=== PATIENT | female | born 1955 | race Caucasian/White ===

== ENCOUNTER → 2016-10-06 | Outpatient (CLI) | payer OTHER ==
--- NOTE | 2016-10-07 08:00 | MM ---
Reason for exam: screening (asymptomatic). Last mammogram was performed 1 year ago. History: Patient is postmenopausal and history of other cancer. Family history of breast cancer in mother at age 70, breast cancer in maternal aunt, and breast cancer in paternal aunt. Benign excisional biopsy of the right breast, 1989. Physical Findings: A clinical breast exam by your physician is recommended on an annual basis and results should be correlated with mammographic findings. MG Screening Mammo w CAD Bilateral CC and MLO view(s) were taken. Prior study comparison: October 05, 2015, bilateral MG screening mammo w CAD. October 03, 2014, bilateral MG screening mammo w CAD. There are scattered fibroglandular densities. There is no discrete abnormality. No significant changes when compared with prior studies. ASSESSMENT: Negative, BI-RAD 1 RECOMMENDATION: Routine screening mammogram of both breasts in 1 year.
== END | disposition home or self-care (01) ==
LOC: RADMAMWWP 08:51
PROVIDERS: ATTEND Internal Medicine
DX: Z12.31 Encounter for screening mammogram for malignant neoplasm of breast (principal)

== ENCOUNTER → 2017-06-14 | Outpatient (CLI) | payer OTHER | END | disposition home or self-care (01) | LOC: LABWHC1 11:38 | PROVIDERS: ATTEND Psychiatry & Neurology Neurology | DX: G35 Multiple sclerosis (principal) | CPT/HCPCS: 36415; 82306 ==

== ENCOUNTER → 2017-10-18 | Outpatient (CLI) | payer OTHER ==
--- NOTE | 2017-10-18 08:16 | CT ---
EXAMINATION TYPE: CT soft tissue neck w con DATE OF EXAM: 10/18/2017 COMPARISON: 06/25/2012 HISTORY: 62-year-old female with swelling and neck mass TECHNIQUE: Contiguous axial scanning of the neck performed with IV Contrast, patient injected with 10 0 mL of Omnipaque 300. Coronal/sagittal reconstructions performed. CT DLP: 493 mGycm Automated exposure control for dose reduction was used. FINDINGS: Slight rightward nasal septal deviation. Visualized paranasal sinuses and mastoid air cells are clear . Nasopharynx is clear. Oropharynx is clear. The glottic and subglottic structures as well as the tracheal column are clear. Epiglottis and prevertebral soft tissues are within normal limits. A 7 mm hypodense nodule within the left lobe of the thyroid gland appears to haven't present previous ly. There is a 4 mm calcification now seen in the upper right submandibular gland. No surrounding inflamm atory changes are seen. Parotid glands mildly atrophic but otherwise unremarkable. Palpable marker present along the right submandibular region. There is a nonenlarged level 2 upper ce rvical lymph node measuring 7 mm just above this level. The right submandibular gland is slightly low er in position than the left and directly underlies the palpable marker. No cervical lymphadenopathy identified by CT size criteria. Moderate endplate spondylosis mid to lower cervical spine with disc osteophyte complexes mildly narro wing the spinal canal especially at C5-C6. Visualized upper lung shows similar emphysema and biapical pleural parenchymal scarring. IMPRESSION: 1. THE RIGHT SUBMANDIBULAR GLAND UNDERLIES THE PALPABLE MARKER AND IS LOCATED LOWER IN POSITION THAN THE LEFT SUBMANDIBULAR GLAND. CLINICALLY CORRELATE THIS MAY ACCOUNT FOR THE PALPABLE FINDING. 2. 4 MM RIGHT SUBMANDIBULAR GLAND SIALOLITH. THIS IS LOCATED WITHIN THE GLAND PARENCHYMA. NO APPRECIA BLE INFLAMMATORY CHANGES TO SUGGEST SIALOADENITIS AT THIS TIME. 3. OTHERWISE, NO CERVICAL LYMPHADENOPATHY OR SUSPICIOUS NECK MASS. 4. COPD.
== END | disposition home or self-care (01) ==
LOC: RADCTMAIN 06:41
PROVIDERS: ATTEND Internal Medicine
DX: K11.5 Sialolithiasis (principal)
CPT/HCPCS: 70491; Q9967

== ENCOUNTER 2018-01-18 08:43 | Day surgery (SDC) | payer OTHER ==
[2018-01-16 15:21] VITALS: BMI 23.7
[~2018-01-18 08:43] MED LIST: LACTATED RINGERS 1,000 ML IV SCH
[2018-01-18 09:04] VITALS: RESP 16; TEMP 97.4
[2018-01-18] MEDS ORDERED: LIDOCAINE 1% 20 ML VIAL (10MG/ML) FOR IV START INTRADERMA ONE (09:22)
[2018-01-18] MEDS ORDERED: LIDOCAINE 1% INJ 10MG/ML (20 ML MDV) ONE (09:57)
[2018-01-18] MEDS ORDERED: PROPOFOL 10 MG/ML 20 ML VIAL IV ONE (09:57)
--- NOTE | 2018-01-18 10:37 | P.PCN ---
Date of Procedure: 01/18/18 Procedure(s) Performed: Procedure: Total colonoscopy. Preoperative diagnosis: History of rectal bleeding. Postoperative diagnosis: Low-grade internal hemorrhoids not bleeding at the time of this exam, otherwise, exam to the cecum within normal limits. Preparation: HalfLytely prep. Sedation: Was provided by anesthesia. Brief clinical history: The patient is a 62-year-old female who is scheduled for this evaluation because of an episode of rectal bleeding that occurs around 1 month ago. That was following a bout of diarrhea. Normally, she has 1 bowel movement a week. Her last colonoscopy was in 2012. Procedure: With the patient on her left lateral decubitus position and after informed consent and adequate sedation, the perianal area was inspected and it did not show any fissures or fistulas. There were no masses felt on digital rectal examination. The Olympus CFQ 160L video colonoscope was then inserted in the rectum in the usual fashion and advanced to the cecum. The mucosa appeared healthy. No obvious polyps or tumors were seen or any obvious diverticular disease. Low-grade internal hemorrhoids were noted upon withdrawing the endoscope but there was no evidence of bleeding. The patient tolerated the procedure well. Plan: The patient was reassured. Discussed dietary measures and local care for hemorrhoids. She will follow-up with you as planned and I recommended repeat exam in 10 years.
[2018-01-18 10:55] VITALS: BP 96/71; PULSE 60
== END 2018-01-18 11:25 | disposition home or self-care (01) ==
LOC: ORWHC2ENDO 08:43
DX: K64.8 Other hemorrhoids (principal); K21.9 Gastro-esophageal reflux disease without esophagitis; J44.9 Chronic obstructive pulmonary disease, unspecified; E78.5 Hyperlipidemia, unspecified; G35 Multiple sclerosis; Z85.828 Personal history of other malignant neoplasm of skin; Z87.891 Personal history of nicotine dependence; Z79.891 Long term (current) use of opiate analgesic; Z79.899 Other long term (current) drug therapy
CPT/HCPCS: 45378; J2001; J2704

== ENCOUNTER 2018-03-15 12:14 | Emergency (ER) | payer OTHER ==
[2018-03-15 12:20] VITALS: RESP 18
--- NOTE | 2018-03-15 12:30 | ED ---
General Adult HPI - General Chief complaint: Chest Pain Stated complaint: Chest Pain, traveling to throat Time Seen by Provider: 03/15/18 12:27 Source: patient, RN notes reviewed, old records reviewed Mode of arrival: wheelchair Limitations: no limitations - History of Present Illness Initial comments: This is a 63-year-old female the ER for evaluation. This patient was essay for evaluation regards to chest pain. Midsternal chest pain rating to left side left neck. Left jaw. No shortness of breath currently. Patient did have mild shortness of breath. No diaphoresis. A she has history of CAD COPD and high cholesterol - Related Data Home Medications Medication Instructions Recorded Confirmed FLUoxetine HCL [Fluoxetine HCl] 60 mg PO QAM 07/15/14 03/15/18 Tiotropium 18 Mcg/Puff [Spiriva] 1 cap INHALATION RT-DAILY 07/15/14 03/15/18 traZODone HCL [Oleptro ER] 150 mg PO HS 07/15/14 03/15/18 Albuterol Sulfate [Proventil Hfa] 2 puff INHALATION RT-Q4H PRN 04/20/16 03/15/18 HYDROcodone/APAP 10-325MG [[place] 1 tab PO Q6H PRN 04/20/16 03/15/18 10-325] Naproxen 500 mg PO Q12HR 04/20/16 03/15/18 Pramipexole [Mirapex] 1 mg PO BID 04/20/16 03/15/18 Cholecalciferol [Vitamin D3] 2,000 unit PO DAILY 01/16/18 03/15/18 Cyanocobalamin [Vitamin B-12] 2,500 mcg PO DAILY 01/16/18 03/15/18 Baclofen [Lioresal] 10 mg PO DAILY 03/15/18 03/15/18 Zolpidem Tartrate [Ambien] 10 mg PO HS 03/15/18 03/15/18 Allergies Allergy/AdvReac Type Severity Reaction Status Date / Time No Known Allergies Allergy Verified 03/15/18 12:58 Review of Systems ROS Statement: Those systems with pertinent positive or pertinent negative responses have been documented in the HPI. ROS Other: All systems not noted in ROS Statement are negative. Past Medical History Past Medical History: Cancer, COPD, GERD/Reflux, Hyperlipidemia, Memory Impairment, Musculoskeletal Disorder, Neurologic Disorder Additional Past Medical History / Comment(s): MS, bilateral tinnitis, chronic back pain, numbness/tingling bilateral hands/feet/legs, sinus problems, skin cancer, hemorrhoids, recent blood in stool History of Any Multi-Drug Resistant Organisms: C-DIFF Date of last positivie culture/infection: 07/2013 per old medical record dated 07/18/14 but pt does not recall. MDRO Source:: stool Past Surgical History: Hernia Repair, Joint Replacement, Orthopedic Surgery Additional Past Surgical History / Comment(s): both hips replaced, cystectomy L breast, cystectomy L ring finger, D&C, colonoscopy, carpal tunnel rajinder, reconstruction left thumb Past Anesthesia/Blood Transfusion Reactions: No Reported Reaction Past Psychological History: Depression Smoking Status: Current every day smoker Past Alcohol Use History: None Reported Past Drug Use History: Marijuana - Past Family History Mother Family Medical History: Cancer Additional Family Medical History / Comment(s): Mother had breast, lung, colon and possible brain cancer. She at the age of 76 yrs. Father History Unknown: Yes Additional Family Medical History / Comment(s): Father in a snowmobile accident. Sister(s) Family Medical History: Cancer General Exam Limitations: no limitations General appearance: alert, in no apparent distress Head exam: Present: atraumatic, normocephalic, normal inspection Eye exam: Present: normal appearance, PERRL, EOMI. Absent: scleral icterus, conjunctival injection, periorbital swelling ENT exam: Present: normal exam, mucous membranes moist Neck exam: Present: normal inspection. Absent: tenderness, meningismus, lymphadenopathy Respiratory exam: Present: normal lung sounds bilaterally. Absent: respiratory distress, wheezes, rales, rhonchi, stridor Cardiovascular Exam: Present: regular rate, normal rhythm, normal heart sounds. Absent: systolic murmur, diastolic murmur, rubs, gallop, clicks GI/Abdominal exam: Present: soft, normal bowel sounds. Absent: distended, tenderness, guarding, rebound, rigid Extremities exam: Present: normal inspection, full ROM, normal capillary refill. Absent: tenderness, pedal edema, joint swelling, calf tenderness Back exam: Present: normal inspection Neurological exam: Present: alert, oriented X3, CN II-XII intact Psychiatric exam: Present: normal affect, normal mood Skin exam: Present: warm, dry, intact, normal color. Absent: rash Course Vital Signs 03/15/18 03/15/18 03/15/18 12:18 12:25 13:25 Temperature 98 F Pulse Rate 81 66 Pulse Rate [ 70 Bilateral Sitting Radial] Respiratory 18 18 18 Rate Blood Pressure 126/80 124/75 O2 Sat by Pulse 98 99 Oximetry 03/15/18 14:25 Temperature 97.8 F Pulse Rate 65 Pulse Rate [ Bilateral Sitting Radial] Respiratory 18 Rate Blood Pressure 136/63 O2 Sat by Pulse 95 Oximetry - Reevaluation(s) Reevaluation #1: 03/15/18 14:30 She remains without chest pain EKG Findings - EKG Comments: EKG Findings:: EKG shows normal sinus rhythm rate of 65, WV 150, QRS 96, QTc 443 Medical Decision Making - Medical Decision Making 63 female no chest pain, patient symptoms are resolved CT EKG troponin negative. Patient will be discharged home - Lab Data Result diagrams: 03/15/18 12:43 03/15/18 12:43 Lab Results 03/15/18 03/15/18 03/15/18 Range/Units 12:43 12:43 12:43 WBC 7.7 (3.8-10.6) k/uL RBC 4.20 (3.80-5.40) m/uL Hgb 13.5 (11.4-16.0) gm/dL Hct 39.6 (34.0-46.0) % MCV 94.4 (80.0-100.0) fL MCH 32.2 (25.0-35.0) pg MCHC 34.1 (31.0-37.0) g/dL RDW 12.1 (11.5-15.5) % Plt Count 301 (150-450) k/uL Neutrophils % 65 % Lymphocytes % 23 % Monocytes % 7 % Eosinophils % 3 % Basophils % 0 % Neutrophils # 5.0 (1.3-7.7) k/uL Lymphocytes # 1.8 (1.0-4.8) k/uL Monocytes # 0.5 (0-1.0) k/uL Eosinophils # 0.2 (0-0.7) k/uL Basophils # 0.0 (0-0.2) k/uL PT (9.0-12.0) sec INR (<1.2) APTT (22.0-30.0) sec Sodium 135 L (137-145) mmol/L Potassium 4.2 (3.5-5.1) mmol/L Chloride 104 (98-107) mmol/L Carbon Dioxide 24 (22-30) mmol/L Anion Gap 7 mmol/L BUN 16 (7-17) mg/dL Creatinine 0.84 (0.52-1.04) mg/dL Est GFR (CKD-EPI)AfAm 86 (>60 ml/min/1.73 sqM) Est GFR (CKD-EPI)NonAf 75 (>60 ml/min/1.73 sqM) Glucose 89 (74-99) mg/dL Calcium 9.2 (8.4-10.2) mg/dL Magnesium 2.1 (1.6-2.3) mg/dL Total Bilirubin 0.4 (0.2-1.3) mg/dL AST 36 (14-36) U/L ALT 34 (9-52) U/L Alkaline Phosphatase 53 (38-126) U/L Total Creatine Kinase 85 (30-135) U/L CK-MB (CK-2) 1.8 (0.0-2.4) ng/mL CK-MB (CK-2) Rel Index 2.1 Troponin I <0.012 (0.000-0.034) ng/mL Total Protein 6.3 (6.3-8.2) g/dL Albumin 4.0 (3.5-5.0) g/dL Lipase 99 (23-300) U/L 03/15/18 Range/Units 13:02 WBC (3.8-10.6) k/uL RBC (3.80-5.40) m/uL Hgb (11.4-16.0) gm/dL Hct (34.0-46.0) % MCV (80.0-100.0) fL MCH (25.0-35.0) pg MCHC (31.0-37.0) g/dL RDW (11.5-15.5) % Plt Count (150-450) k/uL Neutrophils % % Lymphocytes % % Monocytes % % Eosinophils % % Basophils % % Neutrophils # (1.3-7.7) k/uL Lymphocytes # (1.0-4.8) k/uL Monocytes # (0-1.0) k/uL Eosinophils # (0-0.7) k/uL Basophils # (0-0.2) k/uL PT 9.9 (9.0-12.0) sec INR 1.0 (<1.2) APTT 24.5 (22.0-30.0) sec Sodium (137-145) mmol/L Potassium (3.5-5.1) mmol/L Chloride (98-107) mmol/L Carbon Dioxide (22-30) mmol/L Anion Gap mmol/L BUN (7-17) mg/dL Creatinine (0.52-1.04) mg/dL Est GFR (CKD-EPI)AfAm (>60 ml/min/1.73 sqM) Est GFR (CKD-EPI)NonAf (>60 ml/min/1.73 sqM) Glucose (74-99) mg/dL Calcium (8.4-10.2) mg/dL Magnesium (1.6-2.3) mg/dL Total Bilirubin (0.2-1.3) mg/dL AST (14-36) U/L ALT (9-52) U/L Alkaline Phosphatase (38-126) U/L Total Creatine Kinase (30-135) U/L CK-MB (CK-2) (0.0-2.4) ng/mL CK-MB (CK-2) Rel Index Troponin I (0.000-0.034) ng/mL Total Protein (6.3-8.2) g/dL Albumin (3.5-5.0) g/dL Lipase (23-300) U/L - Radiology Data Radiology results: report reviewed (CT angios negative for acute disease), image reviewed Disposition Clinical Impression: Chest pain Disposition: HOME SELF-CARE Condition: Good Instructions: Chest Pain (ED) Is patient prescribed a controlled substance at d/c from ED?: No Referrals: Shalini Toscano MD [Primary Care Provider] - 1-2 days
[2018-03-15 12:54] LABS: Basophils % (A) 0 %; Eosinophils # (A) 0.2 k/uL (0-0.7); Eosinophils % (A) 3 %; HCT 39.6 % (34.0-46.0); HGB 13.5 gm/dL (11.4-16.0); Lymphocytes # (A) 1.8 k/uL (1.0-4.8); Lymphocytes % (A) 23 %; MCH 32.2 pg (25.0-35.0); MCHC 34.1 g/dL (31.0-37.0); MCV 94.4 fL (80.0-100.0); Monocytes # (A) 0.5 k/uL (0-1.0); Monocytes % (A) 7 %; Neutrophils % (A) 65 %; Platelet Count 301 k/uL (150-450); RDW 12.1 % (11.5-15.5); WBC 7.7 k/uL (3.8-10.6)
[2018-03-15 13:04] LABS: Calcium 9.2 mg/dL (8.4-10.2); Magnesium 2.1 mg/dL (1.6-2.3); Potassium 4.2 mmol/L (3.5-5.1); Total Bilirubin 0.4 mg/dL (0.2-1.3); Total Protein 6.3 g/dL (6.3-8.2)
[2018-03-15 13:21] LABS: Partial Thromboplastin Time 24.5 sec (22.0-30.0); Prothrombin Time 9.9 sec (9.0-12.0)
[2018-03-15 13:23] LABS: Creatine Kinase 85 U/L (30-135)
[2018-03-15 13:37] LABS: Creatine Kinase MB 1.8 ng/mL (0.0-2.4); Troponin I <0.012 ng/mL (0.000-0.034)
--- NOTE | 2018-03-15 13:58 | CT ---
EXAMINATION TYPE: CT angio chest DATE OF EXAM: 03/15/2018 COMPARISON: Prior CT chest 09/23/2011 HISTORY: Chest pains CT DLP: 221.3 mGycm Automated exposure control for dose reduction was used. CONTRAST: CTA scan of the thorax is performed with IV Contrast, patient injected with 100 mL of Isovue 370, pul monary embolism protocol. MIP images are created and reviewed. 3D reconstructed images are created on an independent workstation and reviewed. FINDINGS: LUNGS: There are extensive emphysematous changes are present, apical scarring is stable. No pleural o r pericardial effusion. AORTA: No additional significant abnormality is seen. MEDIASTINUM: There is satisfactory enhancement of the pulmonary artery and its branches, there is no CT evidence for pulmonary embolism. There are no greater than 1 cm hilar or mediastinal lymph nodes. No pericardial effusion is seen. OTHER: No additional significant abnormality is seen. IMPRESSION: Emphysema, no pulmonary embolus.
[2018-03-15 14:26] VITALS: BP 136/63; PULSE 65; TEMP 97.8
== END 2018-03-15 14:40 | disposition home or self-care (01) ==
LOC: EC 12:14
DX: R07.89 Other chest pain (principal); J44.9 Chronic obstructive pulmonary disease, unspecified; E78.5 Hyperlipidemia, unspecified; F32.9 Major depressive disorder, single episode, unspecified; F17.200 Nicotine dependence, unspecified, uncomplicated; Z79.1 Long term (current) use of non-steroidal anti-inflammatories (NSAID); Z79.899 Other long term (current) drug therapy
CPT/HCPCS: 36415; 71275; 80053; 82550; 82553; 83690; 83735; 84484; 85025; 85610; 85730; 93005; 99285

== ENCOUNTER → 2018-04-10 | Outpatient (CLI) | payer OTHER, MEDICARE ==
--- NOTE | 2018-04-16 13:48 | MM ---
Reason for exam: screening (asymptomatic). Last mammogram was performed 1 year and 6 months ago. History: Patient is postmenopausal and history of other cancer. Family history of breast cancer in mother at age 70, breast cancer in maternal aunt, and breast cancer in paternal aunt. Benign excisional biopsy of the right breast, 1989. Physical Findings: A clinical breast exam by your physician is recommended on an annual basis and results should be correlated with mammographic findings. MG Screening Mammo w CAD Bilateral CC and MLO view(s) were taken. Prior study comparison: October 06, 2016, bilateral MG screening mammo w CAD. October 05, 2015, bilateral MG screening mammo w CAD. The breast tissue is heterogeneously dense. This may lower the sensitivity of mammography. No significant changes when compared with prior studies. ASSESSMENT: Benign, BI-RAD 2 RECOMMENDATION: Routine screening mammogram of both breasts in 1 year.
== END | disposition home or self-care (01) ==
LOC: RADMAMWWP 10:01
PROVIDERS: ATTEND Internal Medicine
DX: Z12.31 Encounter for screening mammogram for malignant neoplasm of breast (principal)
CPT/HCPCS: 77067

== ENCOUNTER → 2018-04-11 | Outpatient (CLI) | payer OTHER, MEDICARE ==
--- NOTE | 2018-04-11 12:47 | EST ---
EXERCISE STRESS DATE OF SERVICE: 04/11/2018 AGE: 63 SEX: Female HT: 6'0" WT: 173 pounds PROTOCOL: Cardiolite Greg STAGE: I DURATION OF EXERCISE: 5 minutes 14 seconds HEART RATE REST: 69 BLOOD PRESSURE REST: 111/71 MAXIMUM HEART RATE ACHIEVED: 142 MAXIMUM BLOOD PRESSURE: 177/83 85% MPHR: 134 100% MPHR: 158 METS: 7.1 INDICATIONS: Chest pain. CLINICAL INFORMATION: STRESS DATA: Pretesting physical examination showed a heart rate of 69, pressure is 111/71 mmHg. Baseline EKG showed sinus rhythm. The patient exercised on the treadmill according to Greg protocol for a total of 5 minutes and 14 seconds and achieved 7.1 METs. Max heart rate was 142, which is about 89% of maximum predicted heart rate. Maximum blood pressure was 177/83 mmHg. Clinically the patient did not have any symptoms of chest pain or discomfort. She developed some shortness of breath, but the EKG did not show any significant ST or T-wave abnormalities concerning for ischemia. CONCLUSION: 1. Average exercise tolerance. 2. Normal EKG response to exercise. MMODL / IJN: [id number] /
--- NOTE | 2018-04-11 15:47 | NM ---
EXAMINATION TYPE: NM stress cardiolite complete DATE OF EXAM: 04/11/2018 COMPARISON: NONE HISTORY: Chest pain TECHNIQUE: After the intravenous administration of 10.2 mCi Tc 99m Sestamibi - Rest images obtained 45 minutes post injection. The patient exercised using a MORGAN protocol and 1 minute prior to peak exercise was injected with 26.1 mCi Tc 99m Sestamibi - Stress images obtained 10 minutes post injecti on. FINDINGS: Targeted heart rate was achieved during performance of the study. Review of stress and rest SPECT kali ges demonstrates no distinct perfusion abnormality. Gated analysis shows normal wall motion with an estimated left ventricular ejection fraction of 67 %. Polar maps suggest an inferior wall defect which may be due to artifact. IMPRESSION: 1. No suspicious stress-induced ischemic change. 2. Normal ejection fraction
== END | disposition home or self-care (01) ==
LOC: RADNMMAIN 07:50
PROVIDERS: ATTEND Internal Medicine
DX: R07.89 Other chest pain (principal)
CPT/HCPCS: 93017; 78452; A9500

== ENCOUNTER 2018-07-25 08:05 | Day surgery (SDC) | payer MEDICARE, OTHER ==
[2018-07-17 09:35] VITALS: BMI 23.0
[~2018-07-25 08:05] MED LIST changes: +DEXAMETHASONE SOD PHOSPHATE 10 MG/ML 1 ML VIAL IV ONE; +DEXAMETHASONE SOD PHOSPHATE 4 MG/ML 1 ML VIAL IV ONE; +FAMOTIDINE 20 MG/2 ML VIAL IV ONE; +MIDAZOLAM 2 MG/2 ML VIAL IV PRN; +ONDANSETRON 4 MG/2 ML VIAL IVP ONE; +SCOPOLAMINE 1.5MG/72HR PATCH TRANSDERM ONE; +ceFAZolin 1,000 MG in DEXTROSE/WATER 1 50ML.BAG IV ONE
[2018-07-25] MEDS ORDERED: LIDOCAINE 1% 20 ML VIAL (10MG/ML) FOR IV START INTRADERMA ONE (09:11)
[2018-07-25] MEDS: ONDANSETRON 4 MG/2 ML VIAL IVP ONE ×2 (09:14→12:23)
[2018-07-25] MEDS ORDERED: ePHEDrine SULFATE/0.9% NACL/PF 50 MG/5 ML SYRINGE IV ONE (10:00)
[2018-07-25] MEDS ORDERED: MIDAZOLAM 2 MG/2 ML VIAL ONE (10:00)
[2018-07-25] MEDS ORDERED: fentaNYL (PF) 50 MCG/ML 2 ML AMP ONE (10:00)
[2018-07-25] MEDS ORDERED: PROPOFOL 10 MG/ML 20 ML VIAL IV ONE (10:00)
[2018-07-25] MEDS ORDERED: SUCCINYLCHOLINE CHLORIDE 100 MG/5 ML SYR IV ONE (10:00)
[2018-07-25] MEDS ORDERED: LIDOCAINE 1% INJ 10MG/ML (20 ML MDV) ONE (10:00)
--- NOTE | 2018-07-25 12:02 | P.OP ---
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 She does have a 4 mm calculus within the gland. She's had antibiotics which helped the swelling temporarily but then it recurs. Operative Findings: Grossly enlarged right submandibular gland with appearance of inflammation with mild diffuse erythema. No purulence. No calculus palpated Description of Procedure: Patient brought in the operative suite and placed in a supine position. The patient underwent induction of general anesthesia with oral endotracheal intubation without difficulty. The NIM II facial nerve monitor was placed to monitor the orbicularis christi muscle and this was tested and was working well. The patient was then prepped and draped in usual aseptic fashion. A transverse cervical incision was made 2-1/2 fingerbreadths below the mandible on the right and carried through the skin and subcutaneous tissue and platysma layer. The facial vein was identified inferior to the submandibular gland doubly clamped divided and ligated and retracted superiorly. The inferior aspect of the submandibular gland was identified and dissection was then carried out directly on the gland to raise the marginal mandibular branch of the nerve with the overlying tissue superiorly protecting this with the facial vein with retraction. Dissection then continued from lateral to medial. The inferior aspect and at the superior aspect Randles. The facial artery was identified doubly clamped divided and ligated. The dissection continued medially. The superior aspect to identify the efferent aspect of the lingual nerve and this was doubly clamped divided and ligated at the gland itself thus allowing the lingual nerve to be retracted superiorly. Dissection continued to identify the Dusty's duct which was doubly clamped divided and ligated adjacent to the gland also. Dissection then continued to dissecting the gland from the underlying strap muscles with the hypoglossal nerve identified deep to this and was preserved. Good hemostasis was noted. The wound was copiously irrigated airway normal saline. The gland was excised grossly entirely. A small pledget of Surgicel was placed in the surgical bed. A 1/4 inch in Sanjuanita drain was placed and the wound and brought to the anterior aspect of the wound. The marginal mandibular branch of facial nerve was tested 0.5 mA and stimulated well. There was good lip movement with this. The wound was closed in the platysma and subcutaneous layers with inverted interrupted 4-0 Vicryl suture skin closed with running locking 5-0 Prolene suture. Drain was sutured with 5- 0 Prolene suture also. A light pressure dressing was then placed. The patient was then allowed to emerge from general anesthesia having tolerated procedure well was extubated in the operating suite and transferred to postop recovery area in satisfactory. Good hemostasis noted at the conclusion of the case and good lip mobility noted at the conclusion the case upon emergence.
[2018-07-25 12:04] VITALS: TEMP 96.8
[2018-07-25] MEDS: HYDROmorphone 1 MG/ML 1 ML SYRINGE IVP PRN ×4 (12:23→12:42)
[2018-07-25] MEDS ORDERED: MEPERIDINE 50 MG/ML SYRINGE IVP ONE (12:47)
[2018-07-25 13:59] VITALS: RESP 18
[2018-07-25 14:09] VITALS: BP 99/66; PULSE 82
== END 2018-07-25 14:15 | disposition home or self-care (01) ==
LOC: OR 08:05
PROVIDERS: ATTEND Otolaryngology
DX: K11.23 Chronic sialoadenitis (principal); J43.9 Emphysema, unspecified; Z87.891 Personal history of nicotine dependence; F32.9 Major depressive disorder, single episode, unspecified; Z79.1 Long term (current) use of non-steroidal anti-inflammatories (NSAID); Z79.899 Other long term (current) drug therapy; Z79.891 Long term (current) use of opiate analgesic; G25.81 Restless legs syndrome; G47.00 Insomnia, unspecified
CPT/HCPCS: 42440; J2250; J1100; J2175; J2405; J2001; J3010; J1170; J0690; J0330; J2704; 88307; 88311

== ENCOUNTER 2018-11-17 08:35 | Emergency (ER) | payer MEDICARE, OTHER ==
[2018-11-17 08:40] VITALS: RESP 18
--- NOTE | 2018-11-17 09:23 | ED ---
General Adult HPI - General Chief complaint: Extremity Injury, Lower Stated complaint: Foot injury Time Seen by Provider: 11/17/18 08:42 Source: patient, RN notes reviewed Mode of arrival: ambulatory Limitations: no limitations - History of Present Illness Initial comments: 63-year-old female presents to the emergency department for a chief complaint of left foot pain since last night. Patient states she was sitting on her foot when it fell asleep. She states she began to walk on it and excellently rolled her left ankle. Patient states she has pain when ambulating on the left foot as well as bruising. She denies loss of sensation at this time. She denies any other complaints. Patient has no other complaints at this time including shortness of breath, chest pain, abdominal pain, nausea or vomiting, headache, or visual changes. - Related Data Home Medications Medication Instructions Recorded Confirmed FLUoxetine HCL [Fluoxetine HCl] 60 mg PO QAM 07/15/14 11/17/18 Tiotropium 18 Mcg/Puff [Spiriva] 1 cap INHALATION RT-DAILY 07/15/14 11/17/18 traZODone HCL [Oleptro ER] 150 mg PO HS 07/15/14 11/17/18 Albuterol Sulfate [Proventil Hfa] 2 puff INHALATION RT-Q4H PRN 04/20/16 11/17/18 HYDROcodone/APAP 10-325MG [Worden 1 tab PO Q6H PRN 04/20/16 11/17/18 10-325] Naproxen 500 mg PO DAILY 04/20/16 11/17/18 Pramipexole [Mirapex] 1 mg PO BID 04/20/16 11/17/18 Cholecalciferol [Vitamin D3] 5,000 unit PO DAILY 01/16/18 11/17/18 Cyanocobalamin [Vitamin B-12] 2,500 mcg PO DAILY 01/16/18 11/17/18 Baclofen [Lioresal] 10 mg PO DAILY 03/15/18 11/17/18 Zolpidem Tartrate [Ambien] 10 mg PO HS 03/15/18 11/17/18 Melatonin 10 mg PO HS 07/17/18 11/17/18 Allergies Allergy/AdvReac Type Severity Reaction Status Date / Time No Known Allergies Allergy Verified 11/17/18 09:39 Review of Systems ROS Statement: Those systems with pertinent positive or pertinent negative responses have been documented in the HPI. ROS Other: All systems not noted in ROS Statement are negative. Past Medical History Past Medical History: Cancer, COPD, GERD/Reflux, Hyperlipidemia, Memory Impairment, Musculoskeletal Disorder, Neurologic Disorder Additional Past Medical History / Comment(s): MS, bilateral tinnitis, chronic back pain, numbness/tingling bilateral hands/feet/legs, sinus problems, skin cancer, hemorrhoids, History of Any Multi-Drug Resistant Organisms: C-DIFF Date of last positivie culture/infection: 07/2013 per old medical record dated 07/18/14 but pt does not recall. MDRO Source:: stool Past Surgical History: Breast Surgery, Hernia Repair, Joint Replacement, Orthopedic Surgery Additional Past Surgical History / Comment(s): both hips replaced, cystectomy L breast, cystectomy L ring finger, D&C, colonoscopy, carpal tunnel rajinder, reconstruction left thumb Past Anesthesia/Blood Transfusion Reactions: No Reported Reaction Past Psychological History: Depression Smoking Status: Former smoker Past Alcohol Use History: None Reported Past Drug Use History: Marijuana - Past Family History Mother Family Medical History: Cancer Additional Family Medical History / Comment(s): Mother had breast, lung, colon and possible brain cancer. She at the age of 76 yrs. Father History Unknown: Yes Additional Family Medical History / Comment(s): Father in a snowmobile accident. Sister(s) Family Medical History: Cancer General Exam Limitations: no limitations General appearance: alert, in no apparent distress Head exam: Present: atraumatic, normocephalic, normal inspection Eye exam: Present: normal appearance, PERRL, EOMI. Absent: scleral icterus, conjunctival injection, periorbital swelling ENT exam: Present: normal exam, mucous membranes moist Neck exam: Present: normal inspection, full ROM. Absent: tenderness, meningismus, lymphadenopathy Respiratory exam: Present: normal lung sounds bilaterally. Absent: respiratory distress, wheezes, rales, rhonchi, stridor Cardiovascular Exam: Present: regular rate, normal rhythm, normal heart sounds. Absent: systolic murmur, diastolic murmur, rubs, gallop, clicks Extremities exam: Present: full ROM (Full range of motion of the left foot and digits in the left foot), tenderness (Tenderness noted to the fifth metatarsal as well as the dorsal left foot), normal capillary refill (Capillary refill less than 2 seconds and DP pulse 2+ in lower extremities bilaterally), joint swelling (Patient does have ecchymosis noted to the lateral aspect of the dorsal left foot), other (Sensation intact in the left lower extremity) Neurological exam: Present: alert, oriented X3, CN II-XII intact Psychiatric exam: Present: normal affect, normal mood Course Vital Signs 11/17/18 11/17/18 08:38 09:58 Temperature 98.1 F 97.1 F L Pulse Rate 77 67 Respiratory 18 18 Rate Blood Pressure 129/77 114/78 O2 Sat by Pulse 98 97 Oximetry Procedures - Orthopedic Splinting/Casting Injury #1 Side: left Lower Extremity Injury Location: short leg Lower Extremity Immobilizer: posterior splint Other Orthopedic Equipment: crutches Additional Comments: NV intact after splint applied Medical Decision Making - Medical Decision Making 63-year-old male presents for left foot pain after twisting her ankle last night. Patient does have ecchymosis noted to the lateral aspect of the left foot with fifth metatarsal tenderness. X-ray of the left foot shows a fracture of the distal one third of the diaphysis of the left fifth metatarsal. Neurovascular intact. Patient was put in a splint and educated to remain nonweightbearing on the left leg. Given prescription for crutches. Patient was given referral to orthopedics. Discussed taking Tylenol or her Worden for pain. Discussed returning if she has any worsening symptoms. Disposition Clinical Impression: Fracture of 5th metatarsal Disposition: HOME SELF-CARE Condition: Good Instructions (If sedation given, give patient instructions): Foot Fracture in Adults (ED) Additional Instructions: Please take your Tylenol or Worden for pain. Please use crutches and remain nonweightbearing on the left foot. Rest ice and elevate the left foot. Follow up with orthopedics on Monday. Keep splint dry and in place until that time. Return here if you have any worsening symptoms. Is patient prescribed a controlled substance at d/c from ED?: No Referrals: Shalini Toscano MD [Primary Care Provider] - 1-2 days Daren Bennett DO [Medical Doctor] - 1-2 days Time of Disposition: 09:55
--- NOTE | 2018-11-17 09:27 | XR ---
EXAMINATION TYPE: XR ankle complete LT, XR foot complete LT , 6 VIEWS DATE OF EXAM ORDERED: 11/17/2018 HISTORY: Pain. COMPARISON: None. FINDINGS: Osseous structures about the ankle are normal. No fracture, dislocation or ankle joint eff usion is seen. There is evidence of a comminuted fracture the distal one third of the diaphysis of the left fifth me tatarsal this is mildly angulated but minimally displaced. No other acute fracture is seen. IMPRESSION: FRACTURES OF THE DISTAL ONE THIRD OF THE DIAPHYSIS OF THE LEFT FIFTH METATARSAL. CODE A: INITIAL ENCOUNTER FOR CLOSED FRACTURE.
[2018-11-17 10:05] VITALS: BP 114/78; PULSE 67; TEMP 97.1
== END 2018-11-17 10:00 | disposition home or self-care (01) ==
LOC: EC 08:35
DX: S92.352A Displaced fracture of fifth metatarsal bone, left foot, initial encounter for closed fracture (principal); J44.9 Chronic obstructive pulmonary disease, unspecified; F32.9 Major depressive disorder, single episode, unspecified; Z79.1 Long term (current) use of non-steroidal anti-inflammatories (NSAID); Z85.828 Personal history of other malignant neoplasm of skin; Z96.643 Presence of artificial hip joint, bilateral; Z87.891 Personal history of nicotine dependence; Z79.899 Other long term (current) drug therapy; X50.1XXA Overexertion from prolonged static or awkward postures, initial encounter; Y93.01 Activity, walking, marching and hiking; Y92.89 Other specified places as the place of occurrence of the external cause
CPT/HCPCS: 29515; 99283

== ENCOUNTER → 2019-06-24 | Outpatient (CLI) | payer MEDICARE, OTHER ==
--- NOTE | 2019-06-26 09:08 | MM ---
Reason for exam: screening (asymptomatic). Last mammogram was performed 1 year and 2 months ago. History: Patient is postmenopausal and history of other cancer. Family history of breast cancer in mother at age 70, breast cancer in maternal aunt, and breast cancer in paternal aunt. Benign excisional biopsy of the right breast, 1989. Physical Findings: A clinical breast exam by your physician is recommended on an annual basis and results should be correlated with mammographic findings. MG 3D Screening Mammo W/Cad Bilateral CC and MLO view(s) were taken. Prior study comparison: April 10, 2018, bilateral MG screening mammo w CAD. October 06, 2016, bilateral MG screening mammo w CAD. The breast tissue is heterogeneously dense. This may lower the sensitivity of mammography. Dense tissues anteriorly on a background of scattered densities. No significant changes when compared with prior studies. ASSESSMENT: Negative, BI-RAD 1 RECOMMENDATION: Routine screening mammogram of both breasts in 1 year.
== END | disposition home or self-care (01) ==
LOC: RADMAMWWP 13:12
PROVIDERS: ATTEND Internal Medicine
DX: Z12.31 Encounter for screening mammogram for malignant neoplasm of breast (principal)
CPT/HCPCS: 77063; 77067

== ENCOUNTER → 2019-10-17 | Outpatient (CLI) | payer MEDICARE, OTHER ==
--- NOTE | 2019-10-17 14:02 | XR ---
EXAMINATION TYPE: XR chest 2V DATE OF EXAM: 10/17/2019 COMPARISON: 09/21/2015 INDICATION: Short of breath, history of COPD TECHNIQUE: Frontal and lateral views of the chest are obtained. FINDINGS: The heart size is normal. The pulmonary vasculature is normal. Some mild bilateral apical thickening is present, right greater than left, stable from comparison. Re mainder the lung minaya are clear.. There is hyperinflation and some flattening of diaphragms compat ible COPD. No significant interval changes evident. IMPRESSION: 1. COPD. 2. Stable apical thickening
== END | disposition home or self-care (01) ==
LOC: RADXRMAIN 10:19
PROVIDERS: ATTEND Internal Medicine
DX: J44.9 Chronic obstructive pulmonary disease, unspecified (principal); J92.9 Pleural plaque without asbestos
CPT/HCPCS: 71046

== ENCOUNTER → 2020-08-07 | Outpatient (CLI) | payer MEDICARE, OTHER ==
--- NOTE | 2020-08-07 11:45 | MR ---
EXAMINATION TYPE: MR brain wo/w con DATE OF EXAM: 08/07/2020 COMPARISON: Prior MR brain dated 03/23/2011 HISTORY: MS, memory loss TECHNIQUE: Multiplanar, multisequence images of the brain and brainstem is performed without and with IV contras t, utilizing 7.5 mL intravenous Gadavist . FINDINGS: Diffusion weighted images demonstrate no evidence of a recent infarct or other diffusion ab normality. There is no extra-axial fluid collection. There has been some progression in the number and size of some of white matter, pericallosal hyperintensities on inversion recovery T2-weighted seq uences, some juxtacortical lesions present towards the convexity. Suspect 5-10 lesions. Largest lesio ns in the right frontal white matter periventricular location, axial image #23 measures 9 mm in trans verse dimension by 8 mm in AP dimension where as on previous exam measured approximately 7 mm by 7-8 transverse dimension. The ventricular system and cisternal spaces are normal in size and appearance. The brain volume is age appropriate. Midline structures demonstrate normal morphology. The craniocervical junction appears within normal limits. Post contrast images demonstrate no abnormal enhancement. The dural venous sinuses appear pa tent. The visualized sinuses are clear and the globes are intact. IMPRESSION: Some slight interval progression in size or conspicuity of some of the lesions, number of white matter demyelination foci
== END | disposition home or self-care (01) ==
LOC: RADMRIMAIN 08:52
PROVIDERS: ATTEND Psychiatry & Neurology Neurology
DX: R90.82 White matter disease, unspecified (principal); G37.8 Other specified demyelinating diseases of central nervous system; G93.89 Other specified disorders of brain; R41.3 Other amnesia; G35 Multiple sclerosis
CPT/HCPCS: 70553; A9585

== ENCOUNTER → 2020-08-31 | Outpatient (CLI) | payer MEDICARE, OTHER ==
--- NOTE | 2020-09-01 17:02 | BD ---
EXAMINATION TYPE: Axial Bone Density DATE OF EXAM: 08/31/2020 COMPARISON: NONE CLINICAL HISTORY: Height: 5 FT 10 IN Weight: 154 FRAX RISK QUESTIONS: Alcohol (3 or more units per day): NO Family History (Parent hip fracture): NO Glucocorticoids (More than 3mos): NO (Ex: prednisone, prednisolone, methylprednisolone, dexamethasone, and hydrocortisone). History of Fracture in Adulthood: YES Secondary Osteoporosis: 1. Type 1 Diabetes: NO 2. Hyperthyroidism: NO 3. Menopause before 45: NO 4. Malnutrition: NO 5. Chronic liver disease: NO Rheumatoid Arthritis: YES Current Tobacco Use: MARIJUANA RISK FACTORS HISTORY OF: Surgery to Spine/Hip(right/left)/Wrist (right/left): GALINDO HIP REPLACEMENT When: LEFT 2012 RIGHT 2013 Family History of Osteoporosis: YES Active: YES Diet low in dairy products/other sources of calcium: NO Postmenopausal woman: AGE 52 Take estrogen and/or progesterone medications: NONE Lost more than 2 inches in height since high school: YES MEDICATIONS: Additional Medications: BACLIFEN, VIT D , VIT B12, OMEPRAZOLE, TRAZADONE, XANAX, AMBIEN, Additional History: COPD AND MS EXAM MEASUREMENTS: Bone mineral densitometry was performed using the [employer] System. Bone mineral density as measured about the Lumbar spine is: ----- L1-L4(G/cm2): 1.445 T Score Values are as follows: ----- L2: 3.5 ----- L3: 2.3 ----- L4: 1.4 ----- L1-L4: 2.2 Bone mineral density has: DECREASED -11.1 % since study of: 2009 Bone mineral density about the L Wrist (g/cm2): 0.495 T Score values are as follows: -----Dist. R+U: -3.9 -----Prox. R+U: -1.9 -----Radius total: -3.0 FIRST TIME FOR WRIST TO BE DONE IMPRESSION: Osteoporosis (T Score less than -2.5). There is increased fracture risk and therapy is usually indicated based on age. Re-Screen 1-2 years. NOTE: T-SCORE=SD OF THE YOUNG ADULT MEAN.
--- NOTE | 2020-09-03 10:16 | MM ---
Reason for exam: screening (asymptomatic). Last mammogram was performed 1 year and 2 months ago. History: Patient is postmenopausal and has history of other cancer at age 60. Family history of breast cancer in mother at age 70, breast cancer in maternal aunt, and breast cancer in paternal aunt. Benign excisional biopsy of the right breast, 1989. Physical Findings: A clinical breast exam by your physician is recommended on an annual basis and results should be correlated with mammographic findings. MG 3D Screening Mammo W/Cad Bilateral CC and MLO view(s) were taken. Prior study comparison: June 24, 2019, bilateral MG 3d screening mammo w/cad. April 10, 2018, bilateral MG screening mammo w CAD. The breast tissue is heterogeneously dense. This may lower the sensitivity of mammography. No significant changes when compared with prior studies. ASSESSMENT: Benign, BI-RAD 2 RECOMMENDATION: Routine screening mammogram of both breasts in 1 year.
== END | disposition home or self-care (01) ==
LOC: RADMAMWWP 15:00
PROVIDERS: ATTEND Internal Medicine
DX: Z12.31 Encounter for screening mammogram for malignant neoplasm of breast (principal); M81.0 Age-related osteoporosis without current pathological fracture
CPT/HCPCS: 77063; 77067; 77080

== ENCOUNTER → 2021-01-20 | Outpatient (CLI) | payer MEDICARE, OTHER ==
--- NOTE | 2021-01-20 14:55 | CT ---
EXAMINATION TYPE: CT abdomen pelvis w con DATE OF EXAM: 01/20/2021 COMPARISON: NONE HISTORY: 66-year-old female R10.3, lower Abdominal pain TECHNIQUE: Contiguous axial scanning of the abdomen and pelvis following administration of 100 ml Iso chris 300 IV contrast. Delayed images through the kidneys and coronal/sagittal reconstructions perform ed. CT DLP: 555.5 mGycm Automated exposure control for dose reduction was used. FINDINGS: Heart normal size without pericardial effusion. Moderate emphysematous change in the visualized lower lungs. Liver mildly enlarged at 18.7 cm. No focal lesion is seen. No biliary ductal dilatation. Portal venou s system is patent. Gallbladder, adrenal glands, spleen, pancreas within normal limits. 1.5 cm cortical cyst anterior upper pole left kidney and 7 mm cortical hypodensity right kidney too s mall for accurate CT characterization, also likely a cyst. Suggestion of some generalized gastric fold thickening. No dilated small bowel, free fluid, or free a ir. No mesenteric or retroperitoneal lymphadenopathy. Oral contrast progressed to the mid transverse colon. Moderate stool in the left side of the colon. Bladder is urine distended. Extensive streak and beam hardening artifact obscuring most of the pelvic structures from the patient's bilateral total hip arthroplasties. Suspect a fibroid uterus containing a 1.8 cm calcified fibroid. Suspected visualization of the right ovary. Left ovary not clearly seen. No pelvic lymphadenopathy identified. Bones: Bilateral total hip arthroplasties. Advanced degenerative disc disease L2-S1 levels with trace grade 1 retrolisthesis L2-L3. Facet arthropathy lower lumbar spine. IMPRESSION: 1. THERE MAY BE SOME GENERALIZED GASTRIC FOLD THICKENING. CORRELATE FOR ANY SYMPTOMS OF CHRONIC GASTR ITIS. 2. MODERATE STOOL BURDEN. 3. LIMITED ASSESSMENT OF THE PELVIS DUE TO EXTENSIVE ARTIFACT FROM THE PATIENT'S BILATERAL TOTAL HIP ARTHROPLASTIES.
== END | disposition home or self-care (01) ==
LOC: RADCTMAIN 10:22
PROVIDERS: ATTEND Internal Medicine
DX: R10.30 Lower abdominal pain, unspecified (principal); R19.5 Other fecal abnormalities; Z96.643 Presence of artificial hip joint, bilateral
CPT/HCPCS: 82565; 84520; 74177; 36415; Q9967 ×2

== ENCOUNTER → 2021-07-02 | Outpatient (CLI) | payer MEDICARE, OTHER ==
--- NOTE | 2021-07-02 09:07 | XR ---
EXAMINATION TYPE: XR chest 2V DATE OF EXAM: 07/02/2021 COMPARISON: 10/17/2019 TECHNIQUE: PA and lateral views submitted. HISTORY: Chest pain FINDINGS: The lungs are clear and there is no pneumothorax, pleural effusion, or focal pneumonia. Hyperinflati on. Biapical pleural thickening. Heart size normal. Degenerative changes of the spine. No overt failu re. IMPRESSION: 1. No acute process. Correlate for COPD.
--- NOTE | 2021-07-02 11:15 | NM ---
EXAMINATION TYPE: NM stress cardiolite complete DATE OF EXAM: 07/02/2021 COMPARISON: 04/11/2018 HISTORY: Chest pain TECHNIQUE: After the intravenous administration of 9.9 mCi Tc 99m Sestamibi - Rest images obtained 4 5 minutes post injection. The patient exercised using a MORGAN protocol and 1 minute prior to peak e xercise was injected with 24.7 mCi Tc 99m Sestamibi - Stress images obtained 30 minutes post injectio n. FINDINGS: Targeted heart rate was achieved during performance of the study. Review of stress and rest SPECT kali ges demonstrates no distinct perfusion abnormality. Gated analysis shows normal wall motion with an estimated left ventricular ejection fraction of 59 %. IMPRESSION: No scintigraphic evidence for reversible ischemia
== END | disposition home or self-care (01) ==
LOC: RADNMMAIN 08:14
PROVIDERS: ATTEND Internal Medicine
DX: R07.9 Chest pain, unspecified (principal)
CPT/HCPCS: 71046; 78452; A9500

== ENCOUNTER → 2021-10-13 | Outpatient (CLI) | payer MEDICARE, OTHER ==
--- NOTE | 2021-10-14 13:54 | MM ---
Reason for exam: screening (asymptomatic). Last mammogram was performed 1 year and 1 month ago. History: Patient is postmenopausal and has history of other cancer at age 60. Family history of breast cancer in mother at age 70, breast cancer in paternal aunt at age 50, and breast cancer in paternal aunt. Benign excisional biopsy of the right breast, 1989. Physical Findings: A clinical breast exam by your physician is recommended on an annual basis and results should be correlated with mammographic findings. MG 3D Screening Mammo W/Cad Bilateral CC and MLO view(s) were taken. Prior study comparison: August 31, 2020, bilateral MG 3d screening mammo w/cad. June 24, 2019, bilateral MG 3d screening mammo w/cad. There are scattered fibroglandular densities. Finding: There is a 5-6 mm obscured round mass in the anterior, subareolar position of the right breast. New finding since August 31, 2020 and June 24, 2019. ASSESSMENT: Incomplete: need additional imaging evaluation, BI-RAD 0 RECOMMENDATION: Ultrasound of the right breast. [facility] will attempt to contact patient to return for ultrasound.
== END | disposition home or self-care (01) ==
LOC: RADMAMWWP 10:53
PROVIDERS: ATTEND Internal Medicine
DX: Z12.31 Encounter for screening mammogram for malignant neoplasm of breast (principal); Z78.0 Asymptomatic menopausal state; Z80.3 Family history of malignant neoplasm of breast
CPT/HCPCS: 77063; 77067

== ENCOUNTER → 2021-10-21 | Outpatient (CLI) | payer MEDICARE, OTHER ==
--- NOTE | 2021-10-21 08:34 | USB ---
Reason for exam: additional evaluation requested from abnormal screening. History: Patient is postmenopausal and has history of other cancer at age 60. Family history of breast cancer in mother at age 70, breast cancer in paternal aunt at age 50, and breast cancer in paternal aunt. Benign excisional biopsy of the right breast, 1989. Physical Findings: Nurse did not find any significant physical abnormalities on exam. US Breast Workup Limited RT Right limited breast ultrasound including focal area of concern, retroareolar and axilla demonstrates duct ectasia at the posterior nipple, probable mammogram correlate. Subareolar and axilla scanned. These results were verbally communicated with the patient and result sheet given to the patient on 10/21/21. ASSESSMENT: Probably benign, BI-RAD 3 RECOMMENDATION: Routine screening mammogram of the right breast in 6 months.
== END | disposition home or self-care (01) ==
LOC: RADUSWWP 07:34
PROVIDERS: ATTEND Internal Medicine
DX: R92.8 Other abnormal and inconclusive findings on diagnostic imaging of breast (principal)

== ENCOUNTER → 2021-11-18 | Outpatient (CLI) | payer MEDICARE, OTHER | END | disposition home or self-care (01) | LOC: LABWHC1 11:16 | PROVIDERS: ATTEND Psychiatry & Neurology Neurology | DX: G35 Multiple sclerosis (principal); M62.838 Other muscle spasm; Z79.899 Other long term (current) drug therapy | CPT/HCPCS: 36415; 82306; 83036 ==

== ENCOUNTER → 2022-06-15 | Outpatient (CLI) | payer MEDICARE, OTHER ==
[2022-06-15 09:18] VITALS: BP 114/73; PULSE 68; RESP 18; TEMP 97.7
--- NOTE | 2022-06-15 14:44 | P.PAINPG ---
PQRS Measure Charge Sheet Comment: HISTORY OF PRESENT ILLNESS: 67 yr old female as a referral from Dr Black presents today w severe and chronic neck pain secondary to Occipital Neuralgia for evaluation. Pt states his pain level is currently at 1/10 in intensity, constant, localized in the base of the head, throbbing in character w shooting towards the top of the scalp. Pain is provoked as high as 8/10 by stress and hyperextension. Pain is relieved by heat, medications (Fioricet), repositioning and rest. PMH: Skin CA, COPD, GERD, Hyperlipidemia, MDD, MS PSH: BL Hip Replacement, L Breast Cystectomy, L 4th Digit Surgery, D & C, Colonoscopy, BL CTR, L Thumb Reconstruction SH: Daily tobacco use, +Cannabis use, No ETOH abuse FH: Mo- Breast CA/ Lung CA/Brain CA/ at age 76. Fa- due to a snowmobile accident. Sister- CA. All: NKDA Meds: See list REVIEW OF ORGAN SYSTEMS: CONSTITUTIONAL: No fevers or chills. No recent weight loss. NEUROLOGICAL: + numbness and tingling along the distal extremities. No seizure disorders or headaches. MUSCULOSKELETAL: + pain PSYCHIATRIC: Denies current depression or suicidal thoughts. Physical Examinations : Constitutional : Cooperative , not in acute distress . Neurologic : Cranial nerve II to XII intact. No focal neurological deficits. Psychiatric : alert & oriented x 3. Matching mood & appropriate affect. Judgment & insight intact. Musculoskeletal : Cervical Spine +BL RUSTY TTP Motor strength in the deltoid and biceps: Normal right side. Normal Left side Motor strength biceps and the wrist extensors: Normal right side . Normal left side Motor strength in the triceps muscle: Normal right side. Normal left side Deep tendon reflexes: Normal at the biceps. Normal at Brachioradialis. Normal at triceps Vertebral body tenderness to deep palpation over Cervical facet loading test: positive bilaterally Spurling test: positive bilaterally Neck distraction test: positive bilaterally Dina sign: positive bilaterally Lumbar spine Motor strength lower extremities ,thigh and legs 5/5 Right side , 5/5 Left side Deep tendon reflexes : Normal Knee Jerk. Normal Ankle Jerk Vertebral body tenderness over Lumbar facet Loading Test: positive Right / positive Left Range of motion of the lumbar spine Flexion 30 degrees, extension 10 degrees Straight Leg Raise test: Left/ Right positive at degree Chacho test: positive right / positive left. Severe tenderness over the Sacroiliac joint on the Right / Left sides Gaenslen test: positive bilaterally Seated flexion test: positive bilaterally. Sacral spine : Severe tenderness over the Sacroiliac joint: right side / left side Range of motion: Flexion of the lumbar spine <60 degrees Range of motion: Extension of the lumbar spine <20 degrees Gaenslen's Test positive Dante's Test positive Chacho test: positive right side / l eft side Thigh Thrust Test Sacral Thrust Test Imaging: MRI without contrast of the brain from 08/06/21 reviewed Assessment/ Plan : Occipital Neuralgia Recommendation of BL RUSTY injections. May need a series, up until RFA, for optimal pain relief. Risks, benefits of procedure discussed and patient verbalized understanding. Denies aspirin or anti- coagulant use or medical history of diabetes. Protocol for discontinuation/ continuation of medications teri procedure discussed. All questions answered. I have spent greater than 30 minutes on patient care today. Dr Rizvi was available by phone for the evaluation of this patient. The time was used to review the medical records including relevant urine studies and Prescription history (MAPs), review of the available imaging, evaluation and examination of the patient, coordination of care with the medical staff and if applicable referring physicians, as well as creation of the medical record PQRS Narrative: Smoking Status Former smoker Home Medications: Ambulatory Orders FLUoxetine HCL [Fluoxetine HCl] 60 mg PO QAM 07/15/14 Tiotropium 18 Mcg/Puff [Spiriva] 1 cap INHALATION RT-DAILY 07/15/14 traZODone HCL [Oleptro ER] 150 mg PO HS 07/15/14 Albuterol Sulfate [Proventil Hfa] 2 puff INHALATION RT-Q4H PRN 04/20/16 HYDROcodone/APAP 10-325MG [[place] 10-325] 1 tab PO Q6H PRN 04/20/16 Naproxen 500 mg PO DAILY 04/20/16 Pramipexole [Mirapex] 1 mg PO BID 04/20/16 Cholecalciferol [Vitamin D3] 5,000 unit PO DAILY 01/16/18 Cyanocobalamin [Vitamin B-12] 2,500 mcg PO DAILY 01/16/18 Baclofen [Lioresal] 10 mg PO DAILY 03/15/18 Zolpidem Tartrate [Ambien] 10 mg PO HS 03/15/18 Melatonin [Melatonin ER] 10 mg PO HS 07/17/18 Controlled Substance Measures - Controlled Substance Measures Is patient prescribed a controlled substance at discharge?: No
== END | disposition home or self-care (01) ==
LOC: PNWHC3 08:41
PROVIDERS: ATTEND Specialist
DX: M54.81 Occipital neuralgia (principal)
CPT/HCPCS: 99211

== ENCOUNTER → 2022-06-17 | Outpatient (CLI) | payer MEDICARE, OTHER ==
[2022-06-17 09:06] LABS: African American GFR (CKD) >90 (>60 ml/min/1.73 sqM); Blood Urea Nitrogen 11 mg/dL (7-17); Non-African American GFR(CKD) 79 (>60 ml/min/1.73 sqM)
--- NOTE | 2022-06-17 15:29 | CT ---
EXAMINATION TYPE: CT head without contrast CT angio head DATE OF EXAM: 06/17/2022 COMPARISON: Brain CT 09/13/2013 and HISTORY: 67-year-old female DODGE TECHNIQUE: Contiguous axial scanning of the head without contrast. Coronal and sagittal reconstructio ns performed. Subsequent CT with IV Contrast, patient injected with 100 mL of Isovue 370. Coronal/sag ittal MIP reconstructions performed. 3-D reconstructions generated on a dedicated independent worksta tion. CT DLP: 1481.6 mGycm Automated exposure control for dose reduction was used. FINDINGS: No evidence for acute hemorrhage, acute ischemic change, mass, mass effect, midline shift, or extra-a xial fluid collection. No hydrocephalus. No effacement of cerebral sulci or basal subarachnoid cister ns. Stephens-white matter differentiation is maintained. Slight rightward nasal septal deviation. Trace mucosal thickening ethmoid air cells. Orbits and globe s are intact. Mastoid air cells well pneumatized. CTA: The left vertebral artery is slightly more dominant. Both vertebral and basilar arteries are patent. There is a hypoplastic P1 segment right posterior cerebral artery with persistent origin right [employer]. Remainder of the posterior circulation is patent. There appears to be a tiny 2.5 mm aneurysm at the junction of the cavernous and clinoid segment of th e right ICA projecting medially, refer to thin cut series 12 image 162. Otherwise, the bilateral inte rnal carotid arteries and remainder of the anterior circulation are patent. No additional aneurysmal changes seen. Dural venous sinuses are patent. IMPRESSION: 1. NO ACUTE INTRACRANIAL ABNORMALITY SEEN. 2. 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 3. Normal variant anatomy with persistent origin right [employer]. 4. Otherwise, no large vessel intracranial arterial occlusion, significant stenosis, or additional an eurysmal changes seen.
== END | disposition home or self-care (01) ==
LOC: RADCTMAIN 08:27
PROVIDERS: ATTEND Psychiatry & Neurology Neurology
DX: Z13.89 Encounter for screening for other disorder (principal); R51.9 Headache, unspecified
CPT/HCPCS: 82565; 84520; 70496; 36415; Q9967

== ENCOUNTER 2022-07-12 07:06 | Day surgery (SDC) | payer MEDICARE, OTHER ==
[2022-07-07 13:08] VITALS: BMI 19.6
[~2022-07-12 07:06] MED LIST changes: -DEXAMETHASONE SOD PHOSPHATE 10 MG/ML 1 ML VIAL IV ONE; -DEXAMETHASONE SOD PHOSPHATE 4 MG/ML 1 ML VIAL IV ONE; -FAMOTIDINE 20 MG/2 ML VIAL IV ONE; -MIDAZOLAM 2 MG/2 ML VIAL IV PRN; -ONDANSETRON 4 MG/2 ML VIAL IVP ONE; -SCOPOLAMINE 1.5MG/72HR PATCH TRANSDERM ONE; -ceFAZolin 1,000 MG in DEXTROSE/WATER 1 50ML.BAG IV ONE
[2022-07-12 07:22] VITALS: RESP 16; TEMP 97.6
[2022-07-12] MEDS ORDERED: MIDAZOLAM 2 MG/2 ML VIAL ONE (07:49)
[2022-07-12] MEDS ORDERED: DEXAMETHASONE SOD PHOSPHATE 10 MG/ML 1 ML VIAL ONE (07:49)
[2022-07-12] MEDS ORDERED: fentaNYL (PF) 50 MCG/ML 2 ML AMP ONE (07:49)
[2022-07-12] MEDS ORDERED: ROPIVACAINE 5 MG/ML 20 ML AMPULE ONE (07:49)
--- NOTE | 2022-07-12 07:59 | P.PCN ---
Date of Procedure: 07/12/22 Description of Procedure: Pre-operative diagnosis: occipital neuralgia Post Operative Diagnosis: occipital neuralgia Procedure: Bilateral greater occipital nerve block under ultrasound - Ultrasound used to place needle and avoid vascular structures. Anesthesia: local with 1% lidocaine and IV sedation per nurse anesthesia Sedation administered by: Nurse Anesthesia type: Moderate sedation requested by patient Sedation supervision start time:[id number] Sedation supervision end time: 0758 PROCEDURE INDICATION: The patient with neck pain and headache secondary to occipital neuralgia unresponsive to conservative treatments. PROCEDURE DESCRIPTION / TECHNIQUE: The patient was seen and identified in the preoperative area. Risks, benefits, complications, and alternatives were discussed with the patient, the patient agreed to proceed with the procedure and signed the consent. Vital signs remained stable throughout the procedure. Patient was taken to the OR and time out was completed. The patient was placed in the sitting position on the procedure table. The cervical area and occiptial area were prepped with alcohol swab. Critical pause was taken. Vital signs were closely monitored during the procedure. Conscious sedation was used during the procedure to decrease patients anxiety. Right side: Ultrasound was used and the occipital artery was visualized exiting the skull about 2-3 cm lateral and 2cm inferior to the occipital protuberance On the right side. Then after negative aspiration, a 25g needed was introduced under ultrasound, negative aspiration confirmed and then 3 ml of the block solution containing 2.5 ml of PF Ropivaciane 0.5% and dexamethasone (total of 10mg) was injected after negative aspiration. Needle was withdrawn intact. Left side: Ultrasound was used and the occipital artery was visualized exiting the skull about 2-3 cm lateral and 2cm inferior to the occipital protuberance On the left side. Then after negative aspiration, a 25g needed was introduced under ultrasound, negative aspiration confirmed and then 3 ml of the block solution containing 2.5 ml of PF Ropivaciane 0.5% and dexamethasone (total of 10mg) was injected after negative aspiration. Needle was withdrawn intact. Patient tolerated procedure well. No acute complications.
[2022-07-12] MEDS ORDERED: IV FLUID CONTINUATION 1,000 ML IV ONE (08:02)
[2022-07-12 08:18] VITALS: BP 104/63; PULSE 61
== END 2022-07-12 08:33 | disposition home or self-care (01) ==
LOC: ORPAIN 07:06
PROVIDERS: ATTEND Hospitalist
DX: M54.81 Occipital neuralgia (principal)
CPT/HCPCS: 64405; 76942; J2250; J1100; J3010; J2795

== ENCOUNTER → 2023-05-11 | Outpatient (CLI) | payer MEDICARE, OTHER ==
--- NOTE | 2023-05-11 12:25 | XR ---
EXAMINATION TYPE: XR chest 2V DATE OF EXAM: 05/11/2023 COMPARISON: 07/02/2021 HISTORY: Shortness of breath TECHNIQUE: Frontal and lateral views of the chest are obtained. FINDINGS: Scattered senescent parenchymal changes noted. Hyperinflation compatible with COPD. No evidence for infiltrate. No evidence for atelectasis. Heart size is stable. Mediastinal structures are stable and grossly unremarkable. No evidence for hilar prominence. Degenerative changes dorsal spine. IMPRESSION: 1. No evidence for acute pulmonary disease.
== END | disposition home or self-care (01) ==
LOC: RADXRMAIN 10:52
PROVIDERS: ATTEND Internal Medicine
DX: R06.02 Shortness of breath (principal)
CPT/HCPCS: 71046

== ENCOUNTER → 2023-08-14 | Outpatient (CLI) | payer MEDICARE, OTHER ==
--- NOTE | 2023-08-15 07:56 | XR ---
EXAMINATION TYPE: XR shoulder complete LT DATE OF EXAM: 08/14/2023 10:14 AM CLINICAL INDICATION:Female, 68 years old with history of R52 L shoulder pain; chronic pain COMPARISON: TECHNIQUE: XR shoulder complete LT; shoulder was examined in AP, internally rotated and scapular Y p rojections. FINDINGS: Osseous mineralization appears appropriate. No evidence of acute osseous pathology, joint dislocation , or soft tissue swelling. Mild degenerative changes of the glenohumeral and AC joints with preserved alignment. IMPRESSION: No acute osseous pathology. Mild degenerative changes.
== END | disposition home or self-care (01) ==
LOC: RADXRMAIN 09:55
PROVIDERS: ATTEND Internal Medicine
DX: M19.012 Primary osteoarthritis, left shoulder (principal)

== ENCOUNTER → 2023-09-20 | Outpatient (CLI) | payer MEDICARE, OTHER ==
--- NOTE | 2023-09-22 10:58 | MR ---
EXAMINATION TYPE: MR shoulder LT wo con DATE OF EXAM: 09/20/2023 COMPARISON: None HISTORY: Left shoulder pain with limited movements x4 months TECHNIQUE: Multiplanar, multisequence imaging of the left shoulder is performed without contrast. FINDINGS: The osseous structures are intact without bone contusion or fracture. There is a cluster of subchondr al cysts in the lateral posterior aspect of the humeral head. There is mild osteophytic change of the AC joint but there is moderate shoulder impingement secondary to a downsloping acromion process. There are no joint effusions. There is a small amount of fluid in the subacromion subdeltoid bursa in dicating mild sinusitis. There is diffuse thickening and abnormal signal intensity within the supraspinatus tendon but there i s intrasubstance tears in the tendon just distal to the musculotendinous junction and there is a rim rent tear at the attachment to the humerus. The infraspinatus tendon is intact. The biceps tendon is normal in signal intensity and position within the bicipital groove and the bic eps anchor is intact. There are subtle small focal areas of abnormal signal intensity in the anterior superior cartilagino us labrum consistent with SLAP injury. The subscapularis tendon is intact IMPRESSION: 1. Rotator cuff tears involving the supraspinatus tendon as described. 2. Moderate shoulder impingement as described. 3. Probable small SLAP injury
== END | disposition home or self-care (01) ==
LOC: RADMRIMAIN 16:26
PROVIDERS: ATTEND Internal Medicine
DX: M25.812 Other specified joint disorders, left shoulder (principal); M75.102 Unspecified rotator cuff tear or rupture of left shoulder, not specified as traumatic

== ENCOUNTER → 2023-10-09 | Outpatient (CLI) | payer MEDICARE, OTHER ==
--- NOTE | 2023-10-09 18:18 | BD ---
EXAMINATION TYPE: Axial Bone Density DATE OF EXAM: 10/09/2023 CLINICAL HISTORY: 68 years old Female. ICD-10 CODE: M81.0 KNOWN OSTEOPOROSIS Height: Weight: FRAX RISK QUESTIONS: Alcohol (3 or more units per day): no Family History (Parent hip fracture): no Glucocorticoids (More than 3mos): no (Ex: prednisone, prednisolone, methylprednisolone, dexamethasone, and hydrocortisone). History of Fracture in Adulthood: yes Secondary Osteoporosis: 1. Type 1 Diabetes: no 2. Hyperthyroidism: no 3. Menopause before 45: no 4. Malnutrition: no 5. Chronic liver disease: no Rheumatoid Arthritis: yes Current Tobacco Use: no RISK FACTORS HISTORY OF: Surgery to Spine/Hip(right/left)/Wrist (right/left): bilateral hips MEDICATIONS: Osteoporosis Medications: yes How Long: since 2020 EXAM MEASUREMENTS: Bone mineral densitometry was performed using the [employer] System. Bone mineral density as measured about the Lumbar spine is: ----- L1-L4(G/cm2): 1.448 T Score Values are as follows: ----- L1: 0.5 ----- L2: 3.3 ----- L3: 2.6 ----- L4: 2.2 ----- L1-L4: 2.2 Z Score Values are as follows: ----- L1: 2.1 ----- L2: 4.9 ----- L3: 4.2 ----- L4: 3.9 ----- L1-L4: 3.9 Bone mineral density has: increased 0.2 % since study of: 08.31.2020 Bone mineral density about the L Wrist (g/cm2): 0.451 T Score values are as follows: -----Dist. R+U: -4.7 -----Prox. R+U: -2.5 -----Radius total: -3.7 Z Score values are as follows: -----Dist. R+U: -3.1 -----Prox. R+U: -0.9 -----Radius total: -2.1 Bone mineral density has: decreased -7.2 % since study of: 08.31.2020 IMPRESSION: Osteoporosis (T Score less than -2.5). There is increased fracture risk and therapy is usually indicated based on age. Re-Screen 1-2 years. NOTE: T-SCORE=SD OF THE YOUNG ADULT MEAN.
--- NOTE | 2023-10-10 22:20 | MM ---
Reason for Exam: Screening (asymptomatic). Last screening mammogram was performed 12 month(s) ago. Patient History: Menarche at age 12. First Full-Term at age 24. Postmenopausal. Estrogen, from age 56 until age 57. 1990, Benign Excisional Biopsy on the right side. Paternal aunt had breast cancer, age 50. Paternal aunt had breast cancer, age 60. Niece had breast cancer, age 49. Mother had breast cancer, age 70. Risk Values: Jaylen 5 year model risk: 4.2%. NCI Lifetime model risk: 13.8%. Prior Study Comparison: 10/13/2021 Bilateral Screening Mammogram, LOCATED [facility]IN [facility]. 04/21/2022 Right MG 3D diag mammo w/cad RT, LOCATED [facility]. 10/25/2022 Bilateral MG 3D screening mammo w/cad, LOCATED [facility]. Tissue Density: The breast tissue is heterogeneously dense. This may lower the sensitivity of mammography. Findings: Analyzed By CAD. There is no suspicious group of microcalcifications or new suspicious mass in either breast. Overall Assessment: Negative, BI-RAD 1 Management: Screening Mammogram of both breasts in 1 year. SEE NOTE BELOW IN REGARDS TO PATIENT'S INCREASED 5 YEAR JAYLEN SCORE. Patient should continue monthly self-breast exams. A clinical breast exam by your physician is recommended on an annual basis. This exam should not preclude additional follow-up of suspicious palpable abnormalities. Note on Jaylen scores and lifetime risk: 1. A Jaylen score greater than 3% is considered moderate risk. If this is the case, consider specialist referral to assess eligibility for a risk reducing agent. 2. If overall lifetime risk for the development of breast cancer is 20% or higher, the patient may qualify for future screening with alternating mammogram and breast MRI. Electronically signed and approved by: Lubna Tse M.D. Radiologist
== END | disposition home or self-care (01) ==
LOC: RADMAMWWP 07:17
PROVIDERS: ATTEND Internal Medicine
DX: Z12.31 Encounter for screening mammogram for malignant neoplasm of breast (principal); M81.0 Age-related osteoporosis without current pathological fracture; M85.842 Other specified disorders of bone density and structure, left hand; M06.9 Rheumatoid arthritis, unspecified; Z80.3 Family history of malignant neoplasm of breast; Z78.0 Asymptomatic menopausal state
CPT/HCPCS: 77063; 77067; 77080